=== PATIENT | female | born 1980 | race Caucasian/White ===

== ENCOUNTER 2018-09-21 15:34 | Inpatient (IN) | payer MEDICAID ==
[~2018-09-21] VITALS: Ht 157.5 cm; Wt 88.5 kg
[2018-09-21 16:18] LABS: BASOPHIL % 0.1 % (0-2); PLATELET COUNT 259 x10^3mcL (130-400)
[2018-09-21 16:23] LABS: RED CELL DISTRIBUTION WIDTH 16.5 % (11.5-14.5)
[2018-09-21 16:41] LABS: CARBON DIOXIDE 26.4 mmol/L (21-32); CHLORIDE SERUM 101 mmol/L (98-107); CREATININE SERUM 0.7 mg/dL (0.6-1.0); GFR1 > 60 mL/min; GLUCOSE SERUM 160 mg/dL (74-106); POTASSIUM SERUM 3.8 mmol/L (3.5-5.1); SODIUM SERUM 137 mmol/L (136-145)
[2018-09-21 16:59] LABS: ALBUMIN 3.4 g/dL (3.4-5.0); ALKALINE PHOSPHATASE 82 U/L (46-116); ALT/SGPT 19 U/L (14-59); AST/SGOT 14 U/L (15-37); BILIRUBIN TOTAL 0.6 mg/dL (0.20-1.00); TOTAL PROTEIN, SERUM 7.7 g/dL (6.4-8.2)
[2018-09-21 18:02] LABS: MAGNESIUM 1.9 mg/dL (1.8-2.4); PHOSPHOROUS 2.3 mg/dL (2.5-4.9)
[2018-09-21 18:03] LABS: CHOLESTEROL/HDL RATIO 3.2
[2018-09-21 18:35] VITALS: BP 125/64
[2018-09-21 18:41] VITALS: Ht 157.5 cm; Wt 88.5 kg
[2018-09-21 20:14] VITALS: BP 115/57
[2018-09-22 04:46] VITALS: BP 121/63
[2018-09-22 06:27] LABS: PLATELET COUNT 237 x10^3mcL (130-400)
[2018-09-22 06:46] LABS: CALCIUM 8.2 mg/dL (8.5-10.1); CARBON DIOXIDE 24.8 mmol/L (21-32); CHLORIDE SERUM 101 mmol/L (98-107); CREATININE SERUM 0.5 mg/dL (0.6-1.0); GFR1 > 60 mL/min; GLUCOSE SERUM 174 mg/dL (74-106); MAGNESIUM 2.4 mg/dL (1.8-2.4); PHOSPHOROUS 2.7 mg/dL (2.5-4.9); SODIUM SERUM 127 mmol/L (136-145)
[2018-09-22 07:10] LABS: BASOPHIL % 0 % (0-2); RED CELL DISTRIBUTION WIDTH 16.2 % (11.5-14.5)
[2018-09-22 08:06] LABS: microscopic required? YES; urine erythrocyte TRACE (NEGATIVE)
[2018-09-22 10:47] VITALS: BP 111/60
[2018-09-22 14:45] VITALS: BP 118/70
[2018-09-22 18:32] VITALS: BP 122/80
[2018-09-22 21:43] VITALS: BP 102/59
[2018-09-23 05:30] VITALS: BP 107/67
[2018-09-23 07:11] LABS: PLATELET COUNT 274 x10^3mcL (130-400)
[2018-09-23 07:13] LABS: RED CELL DISTRIBUTION WIDTH 16.2 % (11.5-14.5)
[2018-09-23 07:31] LABS: CALCIUM 8.3 mg/dL (8.5-10.1); CARBON DIOXIDE 25.6 mmol/L (21-32); CHLORIDE SERUM 103 mmol/L (98-107); CREATININE SERUM 0.6 mg/dL (0.6-1.0); GFR1 > 60 mL/min; GLUCOSE SERUM 166 mg/dL (74-106); MAGNESIUM 2.1 mg/dL (1.8-2.4); PHOSPHOROUS 2.5 mg/dL (2.5-4.9); SODIUM SERUM 137 mmol/L (136-145)
[2018-09-23 09:30] VITALS: BP 128/77
[2018-09-23 10:38] LABS: BAND NEUTROPHIL 3 % (0-10); BASOPHIL 0 % (0-2); MONOCYTE 7 % (0-7); SEGMENTED NEUTROPHILS 85 % (37-75)
[2018-09-23 10:39] LABS: rbc morphology (normal/abnorm) ABNORMAL (NORMAL)
[2018-09-23 12:10] VITALS: BP 120/81
[2018-09-23 17:45] VITALS: BP 121/63
[2018-09-23 21:47] VITALS: BP 123/69
[2018-09-24 06:10] VITALS: BP 134/77
[2018-09-24 09:50] VITALS: BP 128/69
[2018-09-24 12:48] VITALS: BP 104/62
[2018-09-24 17:23] VITALS: BP 124/71
[2018-09-24 21:18] VITALS: BP 126/67
[2018-09-25 05:17] VITALS: BP 130/78
[2018-09-25 07:26] LABS: CALCIUM 8.6 mg/dL (8.5-10.1); CARBON DIOXIDE 28.2 mmol/L (21-32); CHLORIDE SERUM 103 mmol/L (98-107); CREATININE SERUM 0.7 mg/dL (0.6-1.0); GFR1 > 60 mL/min; GLUCOSE SERUM 149 mg/dL (74-106); POTASSIUM SERUM 3.6 mmol/L (3.5-5.1); SODIUM SERUM 138 mmol/L (136-145)
[2018-09-25 08:38] LABS: PLATELET COUNT 311 x10^3mcL (130-400); RED CELL DISTRIBUTION WIDTH 15.9 % (11.5-14.5)
[2018-09-25 08:54] VITALS: BP 119/77
[2018-09-25 10:36] LABS: ATYPICAL LYMPH 1 %; BAND NEUTROPHIL 1 % (0-10); BASOPHIL 0 % (0-2); MONOCYTE 3 % (0-7); SEGMENTED NEUTROPHILS 92 % (37-75); rbc morphology (normal/abnorm) ABNORMAL (NORMAL)
[2018-09-25 10:37] LABS: PLATELET MORPHOLOGY PLATELETS NORMAL
[2018-09-25 17:26] VITALS: BP 116/60
[2018-09-25 20:06] VITALS: BP 122/67
[2018-09-26 05:33] VITALS: BP 123/71
[2018-09-26 10:11] VITALS: BP 108/50
[2018-09-26 17:14] VITALS: BP 124/85
[2018-09-26 21:03] VITALS: BP 123/68
[2018-09-27 05:26] VITALS: BP 139/76
[2018-09-27 06:20] LABS: PLATELET COUNT 314 x10^3mcL (130-400)
[2018-09-27 06:32] LABS: CARBON DIOXIDE 28.5 mmol/L (21-32); CHLORIDE SERUM 102 mmol/L (98-107); CREATININE SERUM 0.6 mg/dL (0.6-1.0); GFR1 > 60 mL/min; GLUCOSE SERUM 151 mg/dL (74-106); SODIUM SERUM 138 mmol/L (136-145)
[2018-09-27 07:25] LABS: BASOPHIL % 0 % (0-2); RED CELL DISTRIBUTION WIDTH 15.7 % (11.5-14.5)
[2018-09-27] MEDS ORDERED: LEVAQUIN750 MG PO (09:56)
[2018-09-27] MEDS ORDERED: PREDNISONE20 MG PO (09:57)
[2018-09-27] MEDS ORDERED: ALBUTEROL SULFAT3 M3 HHN (09:58)
[2018-09-27] MEDS ORDERED: BREO ELLIPTA1 PO1 IH (10:02)
[2018-09-27 10:22] VITALS: BP 121/88
[2018-09-27 12:53] VITALS: BP 121/88
== END 2018-09-27 17:28 | disposition home or self-care (01) | DRG 141 ==
LOC: ED 15:34 → DU 17:30 → MU 17:30 → DU 18:10 → MU 09-24 16:48
PROVIDERS: Emergency Medicine; ADMIT Family Medicine
DX: J45.901 Unspecified asthma with (acute) exacerbation (principal); J96.01 Acute respiratory failure with hypoxia; N17.0 Acute kidney failure with tubular necrosis; E87.2 Acidosis; E83.39 Other disorders of phosphorus metabolism; E87.1 Hypo-osmolality and hyponatremia; E86.0 Dehydration; E78.5 Hyperlipidemia, unspecified; E66.9 Obesity, unspecified; Z68.35 Body mass index [BMI] 35.0-35.9, adult
CPT/HCPCS: 36600; 83880; 90732; 94150; J1956; J2920; J2930; J3475; J7030; J7050; J7613; J7620; Q0092